=== PATIENT | female | born 1970 | race Caucasian/White ===

== ENCOUNTER → 2020-09-07 15:25 | Outpatient (CLI) | payer OTHER, SELFPAY ==
--- NOTE | 2020-09-07 15:27 | DIET.PN ---
Dietary Progress Note Assessment: 50y F referred to nutrition for preDM and recent weight gain attending telehealth appt. Pt enrolled in and graduated the [facility] last year and felt the accountability was helpful for her food choices and activity level. 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 Pt was walking almost 5mi per day at work but has become sedentary since the pandemic started. Pt was mostly vegan for past few years which is her preferred eating style, but now has 10y granddaughter (Zainab) living with her who is very active (like to hike together) but is picky eater so now has more of SAD diet. Pt has family hx of DM2 (both parents), had gallbladder removed several years ago. Pt recently not eating nuts r/t diarrhea. B: homemade bread toast c earth balance and cheese and coffee sometimes an egg, sometimes a beef stick. L: salad or tuna c crackers 4pm has cup of coffee c cookie and chats c D: uses balanced plate method most of the time Feels like portion control is a problem, emotional eating in evening, anson anxiety, often salty things like crackers. Pt does not sit down to eat lunch, tends towards multitasking. Pt tends to fall into all or nothing thinking, either she is on program or off, her diet is great or terrible... Supplements: 5,000U Vit D, B complex vitamin, Similace digestive enzyme c meals, takes Vit C, probiotic, Thyroid support, Doterra On Guard, melatonin for sleep HT: 5'2 WT: 180# UBW: 160# BMI:32.9 Labs: FBG 107 wants it to be <100, A1c 6.1 Nutrition Diagnosis: altered nutrition related laboratory values r/t physical inactivity and overconsumption of carbohydrates aeb pt reports little regular physical activity at this time, turns to eating crackers when stressed, A1c 6.1, BMI 32.9. Interventions: 1. Reviewed plate balance for meals and snacks. Discussed ways to keep vegetables easy to access to make 1/2 plate F/non-starchy veggies, 1/4 protein and 1/4 cho. Pt will focus on attaining this balance 80% of the time. 2. Discussed restarting physical activity routine by doing something active whenever the motivation appears and to use this as a way to propel into a more regular routine. Discussed using high energy granddaughter as motivation to move. 3. Encouraged pt to continue to discover more ways to cope with stress than eating. To make meals a time to sit down and mindfully focus on eating. Monitoring/Evaluations: telehealth f/u in 3w to assess progress and problem solve barriers.
== END ==
PROVIDERS: PCP Registered Nurse; Referring Provider Registered Nurse; Visit Provider Registered Nurse
DX: R73.03 Prediabetes (principal); E66.9 Obesity, unspecified; Z68.32 Body mass index [BMI] 32.0-32.9, adult; Z71.3 Dietary counseling and surveillance
CPT/HCPCS: 97802

== ENCOUNTER → 2020-09-27 15:26 | Outpatient (CLI) | payer OTHER, SELFPAY ==
--- NOTE | 2020-09-27 15:29 | DIET.PN ---
Dietary Progress Note Assessment: 50y F attending telehealth appt for f/u c preDM Pt started using fitbit with goal of 12k steps per day. Pt noticing bad habits such as: evening snacking, sitting in front of tv pt feels she needs to track food for a while to get eating back on track. Pt previously used IFM cardiometabolic food plan 1200-1400kcals. We will start with this at [id number] kcals and see how she feels in 2w when we f/u. Interventions: 1. Start tracking food daily using Cardiometabolic plan as guide. 2. Get moving, aim for 12,000 steps per day using fitbit. 3. Drink water, 64oz per day, spread out throughout the day. F/u in 2w via telehealth to assess progress and problem solve barriers.
== END ==
PROVIDERS: PCP Registered Nurse; Referring Provider Registered Nurse; Visit Provider Registered Nurse
DX: R73.03 Prediabetes (principal); Z71.3 Dietary counseling and surveillance
CPT/HCPCS: 97803

== ENCOUNTER → 2020-10-19 16:02 | Outpatient (CLI) | payer OTHER, SELFPAY ==
--- NOTE | 2020-10-19 16:46 | DIET.PN ---
Dietary Progress Note 50y F attending telehealth f/u for preDM and obesity. Pt has been tracking her food and activity on fitbit and sharing with RD. Pts diet is low in protein and high in carbohydrates (200% of needs). Pt feels part of this is poor planning but also because her 10yo grandaughter likes to help make meals and is picky eater (mac n cheese, ham sandwich c chips). 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 Interventions and Goals: 1. Pt will wear her fitbit daily and ensure she is getting >5k steps daily in addition to 20min of physical activity c her granddaughter. 2. Pt will focus on getting 90oz of fluids daily. 3. RD will send pt smoothie handout and resource for easy to make vegetable recipes to assist her granddaughter's focus on balanced meals. F/u in 2w to assess progress and problem solve barriers.
== END ==
PROVIDERS: PCP Registered Nurse; Referring Provider Registered Nurse; Visit Provider Registered Nurse
DX: R73.03 Prediabetes (principal); E66.9 Obesity, unspecified
CPT/HCPCS: 97803

== ENCOUNTER → 2020-11-02 15:57 | Outpatient (CLI) | payer OTHER, SELFPAY ==
--- NOTE | 2020-11-02 15:58 | DIET.PN ---
Dietary Progress Note 50y F attending telehealth f/u for preDM and obesity. Pt continues to share her fitbit data c RD. Pt has been achieving her goal of 90oz water per day. Pt is wearing Fitbit and getting at least 5,000 steps per day per her goal. Pt enjoys dancing in the kitchen with her granddaughter and helping with her physical education class at home. 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 She also must be out of the classroom when it is cleaned so will aim to walk the track. Pt and RD set new goal to aim for 65-75g PRO per day and limit carbs to 150-200g/d to support her obesity and preDM. telehealth f/u in 2w to assess progress and problem solve barriers.
== END ==
PROVIDERS: PCP Registered Nurse; Referring Provider Registered Nurse; Visit Provider Registered Nurse
DX: R73.03 Prediabetes (principal); E66.9 Obesity, unspecified; Z71.3 Dietary counseling and surveillance
CPT/HCPCS: 97803

== ENCOUNTER → 2020-12-06 16:12 | Outpatient (CLI) | payer OTHER, SELFPAY ==
--- NOTE | 2020-12-06 17:14 | DIET.PN ---
Dietary Progress Note 50y F attending telehealth f/u for help with weight loss and preDM. 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 Pt currently weighs 176# at 5'3 with BMI 31. Pt has weight goal of 150#. Three years ago pt was 206# had gotten down to 154# but has since regained 22#. Since being back in the classroom pt has been able to hit 10k step goal every day and is being more mindful of her lunch composition. We discussed situations which are obesogenic and which support her weight maintenance plan. Pt tends to snack on grain carbs when stressed, sad, or busy. If she is too busy to cook her is responsible for the meal which is usually take out. Pt will continue writing list of things that cause her to fall off track so we can work on maintaining her weight loss rather than yo yo dieting. F/u in 2w to assess progress and problem solve barriers.
== END ==
PROVIDERS: PCP Registered Nurse; Referring Provider Registered Nurse; Visit Provider Registered Nurse
DX: R73.03 Prediabetes (principal)
CPT/HCPCS: 97803

== ENCOUNTER → 2020-12-20 16:01 | Outpatient (CLI) | payer OTHER, SELFPAY ==
--- NOTE | 2020-12-20 16:38 | DIET.PN ---
Dietary Progress Note Pt has had stresses over the past 3w as there were covid positive cases in her classroom. Pt is happy she went ahead and got vaccine. Pt has lost 1# this week and is attaining 11k steps daily. She is avoiding crackers and being mindful of her carbohydrate intake. Pt is travelling to [place] to visit her parents who she has not seen for a year. Collaborated on strategies for healthy eating on the go including packing snacks for car, avoiding fast food, being involved in cooking meals. Pts father is DM2 so already practices CCD eating and is active. f/u in 3w to assess progress.
== END ==
PROVIDERS: PCP Registered Nurse; Referring Provider Registered Nurse; Visit Provider Registered Nurse
DX: R73.03 Prediabetes (principal); E66.9 Obesity, unspecified
CPT/HCPCS: 97803